=== PATIENT | male | born 1970 | race Caucasian/White ===

== ENCOUNTER 2018-04-11 18:44 | Observation (INO) | payer SELFPAY ==
[~2018-04-11] VITALS: Ht 182.9 cm; Wt 77.3 kg
[2018-04-11 21:36] LABS: BASOPHILS 0.2 % (0-2); EOSINOPHILS 0.8 % (0-7); HEMATOCRIT 42.8 % (42.0-54.0); HEMOGLOBIN 14.8 g/dL (13.5-17.5); IMMATURE GRANULOCYTES 0.2 % (0-5); LYMPHOCYTES 15.9 % (15-50); MCH 30.9 pg (26.0-34.0); MCHC 34.6 g/dL (31.0-37.0); MCV 89.4 fL (80.0-100.0); MEAN PLATELET VOLUME 9.3 fL (7.4-10.4); MONOCYTES 6.4 % (2-11); NEUTROPHILS 76.5 % (40-80); PLATELET COUNT 314 10x3/uL (130-400); RBC 4.79 10x6/uL (4.20-6.10); RDW 12.5 % (11.5-14.5); WBC 12.2 10x3/uL (4.8-10.8)
[2018-04-11 21:43] LABS: APPEARANCE CLEAR (CLEAR); COLOR YELLOW (YELLOW); NITRITE NEGATIVE (NEGATIVE); PROTEIN NEGATIVE (NEGATIVE)
[2018-04-11 21:44] LABS: BILIRUBIN NEGATIVE (NEGATIVE); GLUCOSE 50 mg/dL (NEGATIVE); KETONE NEGATIVE (NEGATIVE); UROBILINOGEN NORMAL (NORMAL)
[2018-04-11 21:46] LABS: ALBUMIN 3.4 g/dL (3.4-5.0); ALKALINE PHOSPHATASE 102 U/L (46-116); ALT (SGPT) 26 U/L (10-68); AMYLASE - SERUM 48 U/L (25-115); BILIRUBIN - TOTAL 0.22 mg/dL (0.2-1.3); CALC OSMOLALITY 275 mosm/kg (275-300); CALCIUM 9.2 mg/dL (8.5-10.1); CARBON DIOXIDE 28.9 mmol/L (21.0-32.0); CHLORIDE - SERUM 101 mmol/L (98-107); CREATININE - SERUM 1.1 mg/dL (0.6-1.3); GLUCOSE 178 mg/dL (74-106); LIPASE 141 U/L (73-393); POTASSIUM - SERUM 4.2 mmol/L (3.5-5.1); PROTEIN - SERUM 7.2 g/dL (6.4-8.2); SODIUM 135 mmol/L (136-145); UREA NITROGEN 19 mg/dL (7-18); eGFR NON AFRICAN AMERICAN 76 mL/min (90-120)
[2018-04-11 21:48] LABS: BACTERIA FEW /hpf (NONE SEEN); RED CELLS - URINE 0-5 /hpf (0-5)
[2018-04-12] MEDS ORDERED: NAPROSYN500 MG PO (02:11)
[2018-04-12 04:00] VITALS: BP 148/95
[2018-04-12 04:30] VITALS: BP 148/95; BMI 23.1
[2018-04-12 08:28] VITALS: BP 123/89
[2018-04-12 08:40] VITALS: Ht 182.9 cm; Wt 77.3 kg
[2018-04-12] MEDS ORDERED: DOXYCYCLINE HY100 M2 PO (11:04)
[2018-04-12] MEDS ORDERED: DILAUDID4 MG PO (11:05)
[2018-04-12 12:09] VITALS: BP 158/90
== END 2018-04-12 15:12 | disposition home or self-care (01) ==
LOC: D.ER 18:44 → D.MS 04-12 01:10 → OBSVTIME 04-12 01:10 → D.MS 04-12 01:10
PROVIDERS: Family Medicine
DX: N45.3 Epididymo-orchitis (principal); I10 Essential (primary) hypertension; F17.200 Nicotine dependence, unspecified, uncomplicated; K40.90 Unilateral inguinal hernia, without obstruction or gangrene, not specified as recurrent